=== PATIENT | male | born 1965 | race Caucasian/White ===

== ENCOUNTER → 2016-11-24 | Day surgery (SDC) | payer OTHER ==
[~2016-11-24] MED LIST: BUPIVACAINE/EPINEPHRINE 0.5% PF 30 ML VIAL ONE; ISOSULFAN BLUE 50 MG/5 ML VIAL SQ ONE; KETOROLAC TROMETHAMINE 30 MG/ML (IVP) VIAL IV PUSH ONE; LACTATED RINGER'S 1000 ML INJ 1,000 ML ONE; LIDOCAINE 1%/EPINEPHrine 1:100,000 SOLN 20 ML VIAL ONE; MIDAZOLAM HCL 2 MG/2 ML VIAL ONE; NEOMYCIN/POLYMYXIN/BACITRACIN OINT 15 GM TUBE ONE; ONDANSETRON HCL 4 MG/2 ML VIAL IV PUSH ONE; PROPOFOL 200 MG/20 ML AMP IV ONE; ceFAZolin INJ 1,000 MG VIAL ONE
--- NOTE | 2016-11-24 15:53 | TN ---
cc: NASEEM URBINA LUTHER DATE OF SURGERY 11/24/2016 PREOPERATIVE DIAGNOSIS Recurrent pilonidal cyst. POSTOPERATIVE DIAGNOSIS Recurrent pilonidal cyst. PROCEDURE Excision of recurrent pilonidal cyst. ANESTHESIA General SURGEON Dr. Urbina. INDICATION This is a pleasant 51-year-old gentleman who had a pilonidal removed many years ago. He subsequently had a recurrence. [facility] was [facility] surgical excision. PROCEDURE DETAILS The patient was taken to the operating room and placed in the supine position. After anesthesia he was placed in the prone position. The area was shaved and prepped with Betadine. We then do a time-out. We then take some methylene blue dye and then gently place it in the opening injecting into the cavity. He has a second pore or opening about 2 cm above the open area where it had been previously drained, there is thicker tissue just under this as well. This is injected with methylene blue dye. There was a close connection between the two. Elliptical incision is made after anesthetizing the area approximately 5 cm x 3 cm and about 2 cm deep to completely excise the skin and subcutaneous tissue and the apparent recurrent pilonidal. We had previously placed some tape on the gluteal folds to retract them, these are released. We then create flaps on either side of the gluteus adipose tissue to reapproximate this with a 2-0 Vicryl. The deep layers then closed with 2-0 Vicryl and the skin is closed with interrupted 3-0 nylon sutures. The patient was extubated, returned to recovery room and no immediate postop complications. Naseem Urbina MD [id number] /3:33 PM /3:37 PM SAMANTHA
== END | disposition home or self-care (01) ==
LOC: ESDC 13:06
PROVIDERS: ATTEND Surgery
DX: L05.91 Pilonidal cyst without abscess (principal)
CPT/HCPCS: 00300; 11771; 88304; J0690; J1885; J2250; J2405; J3010; J7120; Q9968